=== PATIENT | female | born 1995 | race Caucasian/White ===

== ENCOUNTER 2018-05-03 13:19 | Emergency (ER) | payer OTHER ==
[~2018-05-03] VITALS: Ht 172.7 cm; Wt 60.0 kg
[2018-05-03 13:54] VITALS: BP 130/89; PULSE 91; RESP 17; TEMP 99.1; O2SAT 99
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
[2018-05-03] MEDS ORDERED: CYCL10TA PO (18:19)
[2018-05-03] MEDS ORDERED: IBUP1TAB7 PO (18:19)
== END 2018-05-03 18:35 | disposition home or self-care (01) ==
LOC: NEPD 13:19
DX: S09.90XA Unspecified injury of head, initial encounter (principal); M54.2 Cervicalgia; F17.200 Nicotine dependence, unspecified, uncomplicated; V43.52XA Car driver injured in collision with other type car in traffic accident, initial encounter; Y92.488 Other paved roadways as the place of occurrence of the external cause
CPT/HCPCS: 70450; 72125; 84703; 99283